=== PATIENT | male | born 1985 | race Caucasian/White ===

== ENCOUNTER 2020-08-06 16:43 | Emergency (ER) | payer OTHER ==
[2020-08-06 16:54] VITALS: BP 131/73; PULSE 85; RESP 16; TEMP 98.2
[2020-08-06] MEDS ORDERED: KETOROLAC 15 MG/ML 1 ML VIAL IM STA (17:08)
[2020-08-06] MEDS ORDERED: CYCLOBENZAPRINE 10MG STARTER 3 TAB BTL PO STA (17:08)
--- NOTE | 2020-08-06 18:08 | XR ---
PROCEDURE: XR shoulder complete LT - 3V DATE AND TIME: 08/06/2020 5:30 PM CLINICAL INDICATION: PHH; pain with movement TECHNIQUE: Department protocol COMPARISON: None FINDINGS: There is no fracture or malalignment. The soft tissues are unremarkable. IMPRESSION: NO ACUTE PROCESS.
--- NOTE | 2020-08-06 18:10 | XR ---
PROCEDURE: XR thoracic spine complete - 3V DATE AND TIME: 08/06/2020 5:30 PM CLINICAL INDICATION: PHH; paraspinal tenderness. TECHNIQUE: Department nonstanding protocol COMPARISON: None FINDINGS: Mid-thoracic spine dextrocurvature is noted, which may or may not be positional. There is no fracture or malalignment. The extraskeletal structures are unremarkable. IMPRESSION: No acute radiographic process.
--- NOTE | 2020-08-06 18:31 | ED ---
Extremity Problem HPI - General Source: patient Mode of arrival: ambulatory Limitations: no limitations <Sherie Díaz - Last Filed: 08/06/20 22:22> <Jacquie Santo - Last Filed: 08/08/20 09:48> - General Chief complaint: Extremity Problem,Nontraumatic Stated complaint: Shoulder pain Time Seen by Provider: 08/06/20 17:01 - History of Present Illness Initial comments: 34yo male presenting today for chief complaint of left posterior shoulder pain. Patient states that he frequently lifts at work. he states that his left posterior shoulder/upper back has been buggin him for days. he hasa localized area that hurts to touch. he states it increased with movement up and down of arm or the reaching position. pt denies chest pain,jaw pain,nausea, vomiting, dyspnea, falls, trauma, numbness,tingling or additional concerns. pt denies ripping tear sensation. admits to aching sensation. no hx of HTN. pt appears wel l nontoxic on arrival in no distress. (Sherie Díaz) - Related Data Previous Rx's Medication Instructions Recorded Cyclobenzaprine [Flexeril] 10 mg PO TID PRN 3 Days #9 tab 08/06/20 Allergies Allergy/AdvReac Type Severity Reaction Status Date / Time No Known Allergies Allergy Verified 08/06/20 16:50 Review of Systems ROS Other: All systems not noted in ROS Statement are negative. <Sherie Díaz - Last Filed: 08/06/20 22:22> ROS Other: All systems not noted in ROS Statement are negative. <Jacquie Santo - Last Filed: 08/08/20 09:48> ROS Statement: Those systems with pertinent positive or pertinent negative responses have been documented in the HPI. Past Medical History Past Medical History: Diabetes Mellitus Additional Past Medical History / Comment(s): clavicular dislocation left History of Any Multi-Drug Resistant Organisms: None Reported Past Surgical History: No Surgical Hx Reported Past Psychological History: No Psychological Hx Reported Smoking Status: Current every day smoker Past Alcohol Use History: None Reported Past Drug Use History: Marijuana <Sherie Díaz - Last Filed: 08/06/20 22:22> General Exam Limitations: no limitations <Sherie Díaz - Last Filed: 04/29/21 22:22> - General Exam Comments Initial Comments: General: The patient is awake and alert, in no distress, and does not appear acutely ill. Eye: Pupils are equal, round and reactive to light, extra-ocular movements are intact. No nystagmus. There is normal conjunctiva bilaterally. No signs of icterus. Ears, nose, mouth and throat: There are moist mucous membranes and no oral lesions. Neck: The neck is supple, there is no tenderness or JVD. Cardiovascular: There is a regular rate and rhythm. No murmur, rub or gallop is appreciated. Respiratory: Lungs are clear to auscultation, respirations are non-labored, breath sounds are equal. No wheezes, stridor, rales, or rhonchi. Gastrointestinal: Soft, non-distended, non-tender abdomen without masses or organomegaly noted. There is no rebound or guarding present. No CVA tenderness. Bowel sounds are unremarkable. No pulsatile masses Musculoskeletal: Pain to palpation between outer edge of mid scapula and thoracic spine adjacent to that area. pt winces. pt winces with over head/lowering/reaching of left arm. Strength 5/5. Sensation intact proximal and distal to injury site. Radial pulses equal bilaterally 2+. Neurological: A&O x 3. CN II-XII intact, There are no obvious motor or sensory deficits. Coordination appears grossly intact. Speech is normal. Skin: Skin is warm and dry and no rashes or lesions are noted. Psychiatric: Cooperative, appropriate mood & affect, normal judgment. (Sherie Díaz) Course Vital Signs 08/06/20 16:51 Temperature 98.2 F Pulse Rate 85 Respiratory 16 Rate Blood Pressure 131/73 O2 Sat by Pulse 97 Oximetry Medical Decision Making <Sherie Díaz - Last Filed: 08/06/20 22:22> <Jacquie Santo - Last Filed: 08/08/20 09:48> - Medical Decision Making imaging negative from physical examination this appears muscular skeletal is at is very reproducible. Patient is neurovascularly intact at this time feel he still for discharge was sent back treatment rest heat. patient is agreeable provided work note and is to see pcp in 1-2 days. return for worsening symptoms. Dr Santo agreeeable to care plan. (Sherie Díaz) I was available for consultation in the emergency department. The history and physical exam were done by the midlevel provider. I was consulted for this patients care. I reviewed the case with the midlevel provider and based on their presentation of the patient, I agree with the assessment, medical decision making and plan of care as documented. Chart was dictated using [employer] dictation software. Attempts were made to correct any dictation errors however some typographical errors may persist. Patient was seen during a national state of emergency due to the Covid-19 pandemic. (Jacquie Santo) Disposition Is patient prescribed a controlled substance at d/c from ED?: No Time of Disposition: 18:30 <Sherie Díaz - Last Filed: 08/06/20 22:22> <Jacquie Santo - Last Filed: 08/08/20 09:48> Clinical Impression: Shoulder pain Disposition: HOME SELF-CARE Condition: Good Instructions (If sedation given, give patient instructions): Shoulder Pain (ED) Additional Instructions: Please use medication as discussed. Please follow-up with family doctor in the next 2 days. Please return to emergency room if the symptoms increase or worsen or for any other concerns. Prescriptions: Cyclobenzaprine [Flexeril] 10 mg PO TID PRN 3 Days #9 tab PRN Reason: Muscle Spasm Referrals: None,Stated [Primary Care Provider] - 1-2 days [facility] - 1-2 days
== END 2020-08-06 18:58 | disposition home or self-care (01) ==
LOC: EC 16:43
DX: M25.512 Pain in left shoulder (principal); E11.9 Type 2 diabetes mellitus without complications; F17.200 Nicotine dependence, unspecified, uncomplicated; F12.90 Cannabis use, unspecified, uncomplicated; X50.0XXA Overexertion from strenuous movement or load, initial encounter
CPT/HCPCS: 72072; 73030; 99283; 96372; J1885

== ENCOUNTER 2020-08-26 18:05 | Emergency (ER) | payer OTHER ==
[2020-08-26 18:09] VITALS: BP 140/88; PULSE 105; RESP 18; TEMP 97.4
[2020-08-26] MEDS ORDERED: ACET/COD 300 MG/30 MG STARTER PACK 6 TAB BTL PO STA (18:55)
[2020-08-26] MEDS ORDERED: KETOROLAC 15 MG/ML 1 ML VIAL IM STA (18:55)
--- NOTE | 2020-08-26 18:55 | ED ---
Extremity Problem HPI - General Chief complaint: Extremity Problem,Nontraumatic Stated complaint: pain all over Time Seen by Provider: 08/26/20 18:26 Source: patient Mode of arrival: ambulatory Limitations: no limitations - History of Present Illness Initial comments: Patient is a 34-year-old male presenting to the emergency Department with complaints of ongoing left shoulder and left posterior shoulder pain over the past few weeks. Patient states he was seen here 3 weeks ago for same complaint, had normal x-rays. He did have any falls or trauma to the shoulder. He states he feels like the tightness is just getting worse and worse and his left posterior shoulder and now is causing some increased pain in his left posterior neck. He denies any falls or trauma. No fevers or chills. No chest pain or shortness of breath. He states he was history of an anterior clavicle dislocation on the left side but no other shoulder surgeries or trauma. He states he is in the process of changing primary care physician so he has not been able to follow-up with anybody. He did have a prescription for Flexeril which did seem to help but only had 2 days worth. He states he's been trying to take Tylenol or Motrin for any discomfort but states it started to give him a stomachache. He has no further complaints at this time. - Related Data Previous Rx's Medication Instructions Recorded Cyclobenzaprine [Flexeril] 10 mg PO TID PRN 3 Days #9 tab 08/06/20 Cyclobenzaprine [Flexeril] 5 mg PO BID #15 tablet 08/26/20 predniSONE [Deltasone] 20 mg PO DAILY #5 tab 08/26/20 Allergies Allergy/AdvReac Type Severity Reaction Status Date / Time No Known Allergies Allergy Verified 08/26/20 18:09 Review of Systems ROS Statement: Those systems with pertinent positive or pertinent negative responses have been documented in the HPI. ROS Other: All systems not noted in ROS Statement are negative. Past Medical History Past Medical History: Diabetes Mellitus Additional Past Medical History / Comment(s): clavicular dislocation left History of Any Multi-Drug Resistant Organisms: None Reported Past Surgical History: No Surgical Hx Reported Past Psychological History: No Psychological Hx Reported Smoking Status: Current every day smoker Past Alcohol Use History: None Reported Past Drug Use History: Marijuana General Exam - General Exam Comments Initial Comments: GENERAL: Patient is well-developed and well-nourished. Patient is nontoxic and in no acute distress. HEAD: Atraumatic, normocephalic. EYES: Pupils equal round and reactive to light, extraocular movements intact, sclera anicteric, conjunctiva are normal. Eyelids were unremarkable. ENT: Nares patent, oropharynx clear without exudates. Moist mucous membranes. NECK: Normal range of motion, supple without lymphadenopathy or JVD. LUNGS: Unlabored respirations. Breath sounds clear to auscultation bilaterally and equal. No wheezes rales or rhonchi. HEART: Regular rate and rhythm without murmurs, rubs or gallops. ABDOMEN: Soft, nontender, normoactive bowel sounds. No guarding, no rebound. No masses appreciated. : Deferred MUSCULOSKELETAL: The patient has pain with palpation of the left posterior shoulder, left thoracic area, left cervical paraspinals. He does have full active range of motion of left shoulder. He is neurovascular intact. No swelling, no obvious deformity, no rashes. No clubbing or cyanosis. NEUROLOGICAL: Patient is alert and oriented x 3. Motor and sensory are also intact. Cranial nerves II through XII grossly intact. Symmetrical smile. Normal speech, normal gait. PSYCH: Normal mood, normal affect. SKIN: Warm, Dry, normal turgor, no rashes or lesions noted. Limitations: no limitations Course Vital Signs 08/26/20 18:06 Temperature 97.4 F L Pulse Rate 105 H Respiratory 18 Rate Blood Pressure 140/88 O2 Sat by Pulse 98 Oximetry Medical Decision Making - Medical Decision Making Patient is a 34-year-old male here for continued muscle tightness and spasms of the left posterior shoulder, left thoracic area. He was seen here 3 weeks ago for same complaint, had normal x-rays at that time. He has not been ill follow- up with a PCP as he is switching providers. No fevers, is Full active range of motion. Discussed with patient this is most likely muscle spasms. I will give him a trial of Flexeril which she states has helped in the past. I will also give him a trial of steroids, we discussed not taking any anti-inflammatories w ith this. He may try Tylenol, recommend heat to the area, massage. I will give him orthopedic follow-up. He is stable for discharge and he is in agreement with this plan of care. Disposition Clinical Impression: Muscle spasm of left shoulder Disposition: HOME SELF-CARE Condition: Stable Instructions (If sedation given, give patient instructions): Muscle Spasm (ED) Additional Instructions: Please return to the Emergency Department if symptoms worsen or any other concerns. Trial of muscle relaxers at nighttime, heat to the area, massage. May also take Tylenol. Trial of steroids as well. Please follow up with orthopedic doctor if symptoms persist. Prescriptions: predniSONE [Deltasone] 20 mg PO DAILY #5 tab Cyclobenzaprine [Flexeril] 5 mg PO BID #15 tablet Is patient prescribed a controlled substance at d/c from ED?: No Referrals: None,Stated [Primary Care Provider] - 1-2 days Carlos Alberto Manjarrez DO [Doctor of Osteopathic Medicine] - 1-2 days Time of Disposition: 18:55
== END 2020-08-26 19:16 | disposition home or self-care (01) ==
LOC: EC 18:05
DX: M62.838 Other muscle spasm (principal); M54.2 Cervicalgia; M54.6 Pain in thoracic spine; E11.9 Type 2 diabetes mellitus without complications; F17.200 Nicotine dependence, unspecified, uncomplicated; F12.90 Cannabis use, unspecified, uncomplicated
CPT/HCPCS: 99283; 96372; J1885

== ENCOUNTER 2022-04-11 16:27 | Emergency (ER) | payer OTHER ==
--- NOTE | 2022-04-11 17:15 | ED ---
General Adult HPI - General Source: patient, RN notes reviewed Mode of arrival: ambulatory Limitations: no limitations <Santana Vu - Last Filed: 04/11/22 17:14> <Jacquie Santo - Last Filed: 04/13/22 15:59> - General Stated complaint: Chest pain Time Seen by Provider: 04/11/22 19:49 - History of Present Illness Initial comments: This a 28-year-old male presents emergency Department chief complaint of chest pain. Patient states pain started earlier today. It was left-sided radiate to his back. Patient states that he has known congenital bicuspid aortic valve. Patient states that he misses last echocardiogram. He states he still has some left-sided chest pain. Patient has a history of type 2 diabetes diet controlled, occasional smoking history. No lung disease including asthma or COPD no history of hypertension hyperlipidemia. Patient denies any trauma no rashes no other associated complaints. (Santana Vu) 36-year-old female presents emergency room with reported chest pain. States that he was sitting in a work meeting when he had sudden onset of left-sided chest pain which radiated into his left arm. States it is sharp in nature. Symptoms lasted for approximately 10 minutes before they spontaneously resolved. He does not take any medications to improve his symptoms. He has a history of bicuspid aortic valve with murmur which was recently diagnosed. States that he is due for an echo. Has a prescription for one however has had issues getting it completed due to Covid and influenza infections. Patient reports 2 resolution of his pain at this time. No associated fevers, chills or cough. No shortness of breath. No ripping or tearing sensation to his back. No lower extremity swelling. No history of DVT or PE. No other alleviating, precipitating or or modifying factors (Jacquie Santo) - Related Data Previous Rx's Medication Instructions Recorded Cyclobenzaprine [Flexeril] 10 mg PO TID PRN 3 Days #9 tab 08/06/20 Cyclobenzaprine [Flexeril] 5 mg PO BID #15 tablet 08/26/20 predniSONE [Deltasone] 20 mg PO DAILY #5 tab 08/26/20 Allergies Allergy/AdvReac Type Severity Reaction Status Date / Time No Known Allergies Allergy Verified 04/11/22 17:57 Review of Systems ROS Other: All systems not noted in ROS Statement are negative. <Santana Vu - Last Filed: 04/11/22 17:14> ROS Other: All systems not noted in ROS Statement are negative. <Jacquie Santo Torie - Last Filed: 04/13/22 15:59> ROS Statement: Those systems with pertinent positive or pertinent negative responses have been documented in the HPI. Past Medical History Past Medical History: Diabetes Mellitus Additional Past Medical History / Comment(s): clavicular dislocation left History of Any Multi-Drug Resistant Organisms: None Reported Past Surgical History: No Surgical Hx Reported Past Psychological History: No Psychological Hx Reported Smoking Status: Current every day smoker Past Alcohol Use History: None Reported Past Drug Use History: Marijuana <Santana Vu - Last Filed: 04/11/22 17:14> General Exam General appearance: alert, in no apparent distress Head exam: Present: atraumatic, normocephalic, normal inspection Eye exam: Present: normal appearance, PERRL, EOMI. Absent: scleral icterus, conjunctival injection, periorbital swelling ENT exam: Present: normal exam, mucous membranes moist Neck exam: Present: normal inspection. Absent: tenderness, meningismus, lymphadenopathy Respiratory exam: Present: normal lung sounds bilaterally. Absent: respiratory distress, wheezes, rales, rhonchi, stridor Cardiovascular Exam: Present: regular rate, normal rhythm, normal heart sounds. Absent: systolic murmur, diastolic murmur, rubs, gallop, clicks GI/Abdominal exam: Present: soft, normal bowel sounds. Absent: distended, tenderness, guarding, rebound, rigid Extremities exam: Present: normal inspection, full ROM, normal capillary refill. Absent: tenderness, pedal edema, joint swelling, calf tenderness Back exam: Present: normal inspection Neurological exam: Present: alert, oriented X3, CN II-XII intact Psychiatric exam: Present: normal affect, normal mood Skin exam: Present: warm, dry, intact, normal color. Absent: rash <Jacquie Santo - Last Filed: 04/13/22 15:59> Course Vital Signs 04/11/22 04/11/22 17:55 19:36 Temperature 98.5 F Pulse Rate 74 62 Respiratory 20 16 Rate Blood Pressure 125/81 128/76 O2 Sat by Pulse 99 100 Oximetry EKG Findings - EKG Comments: EKG Findings:: EKG demonstrates sinus rhythm with a rate of 63. MS interval 147. QRS 94. QTC of 372. No acute ST segment elevations. Mild ST depression V3 through V6 as well as 2, 3 and aVF <Jacquie Santo - Last Filed: 04/13/22 15:59> Medical Decision Making - Lab Data Result diagrams: 04/11/22 18:10 04/11/22 18:10 <Jacquie Santo - Last Filed: 04/13/22 15:59> - Medical Decision Making Was pt. sent in by a medical professional or institution? @ -No Did you speak to anyone other than the patient for history? @ -No Did you review nursing and triage notes? @ -Yes and I agree Were old charts reviewed? @ None Differential Diagnosis? @ -MT, ACS, unstable angina, valvular disease, PE, pleurisy EKG interpreted by me (3pts min.)? @ -Yes X-rays interpreted by me (1pt min.)? @ -Yes CT interpreted by me (1pt min.)? @ -No U/S interpreted by me (1pt. min.)? @ -No What testing was considered but not performed? (CT, X-rays, U/S, labs)? Why? @ None What meds were considered but not given? Why? @ -None Did you discuss the management of the patient with other professionals? @ -None Did you reconcile home meds? @ -No Was smoking cessation discussed for >3mins.? @ -No Was critical care preformed (if so, how long)? @ -No Were there social determinants of health that impacted care today? How? (Homelessness, low income, unemployed, alcoholism, drug addiction, transportation, low edu. Level, literacy, decrease access to med. care, custodial, rehab)? @ None Was there de-escalation of care discussed even if they declined? (Discuss DNR or withdrawal of care, Hospice)? @ None What co-morbidities impacted this encounter? (DM, HTN, Smoking, COPD, CAD, Cancer, CVA, Hep., AIDS, mental health diagnosis, sleep apnea, morbid obesity)? @ -DM Was patient admitted / discharged? Upon arrival patient was placed into room 5. A thorough history and physical exam was performed. IV access established laboratory studies were conducted. Patient does go for chest x-ray. Troponin is negative. Patient has been waiting in the waiting room for greater than 3 hours. Did recommend repeat troponin at this time which is also negative. Patient is pain-free. 12-lead EKG demonstrates no acute ischemic changes. Patient will be discharged home at this time and needs to obtain the echo for which he has a prescription. He is to follow-up with his doctor for possible Holter monitoring. Return for any new or worsening symptoms. Patient agreeable to the treatment plan was discharged home in stable condition Undiagnosed new problem with uncertain prognosis? @ -yes Drug Therapy requiring intensive monitoring for toxicity (Heparin, Nitro, Insulin, Cardizem)? @ No Were any procedures done? @ No Diagnosis/symptom? @ -acute chest pain Acute, or Chronic, or Acute on Chronic? @ -acute Uncomplicated (without systemic symptoms) or Complicated (systemic symptoms)? @ -complicated Side effects of treatment? @ None Exacerbation, Progression, or Severe Exacerbation] @ No Poses a threat to life or bodily function? @ Yes (Jacquie Santo) - Lab Data Lab Results 04/11/22 04/11/22 04/11/22 Range/Units 18:10 18:10 18:10 WBC 6.7 (3.8-10.6) k/uL RBC 4.35 (4.30-5.90) m/uL Hgb 13.8 (13.0-17.5) gm/dL Hct 38.8 L (39.0-53.0) % MCV 89.2 (80.0-100.0) fL MCH 31.8 (25.0-35.0) pg MCHC 35.7 (31.0-37.0) g/dL RDW 12.4 (11.5-15.5) % Plt Count 259 (150-450) k/uL MPV 7.3 Neutrophils % 60 % Lymphocytes % 32 % Monocytes % 5 % Eosinophils % 1 % Basophils % 0 % Neutrophils # 4.0 (1.3-7.7) k/uL Lymphocytes # 2.1 (1.0-4.8) k/uL Monocytes # 0.3 (0-1.0) k/uL Eosinophils # 0.1 (0-0.7) k/uL Basophils # 0.0 (0-0.2) k/uL PT 9.6 (9.0-12.0) sec INR 0.9 (<1.2) APTT 23.3 (22.0-30.0) sec Sodium 138 (137-145) mmol/L Potassium 3.7 (3.5-5.1) mmol/L Chloride 105 (98-107) mmol/L Carbon Dioxide 27 (22-30) mmol/L Anion Gap 6 mmol/L BUN 10 (9-20) mg/dL Creatinine 0.64 L (0.66-1.25) mg/dL Est GFR (CKD-EPI)AfAm >90 (>60 ml/min/1.73 sqM) Est GFR (CKD-EPI)NonAf >90 (>60 ml/min/1.73 sqM) Glucose 155 H (74-99) mg/dL Calcium 8.8 (8.4-10.2) mg/dL Magnesium 2.0 (1.6-2.3) mg/dL Total Bilirubin 0.3 (0.2-1.3) mg/dL AST 36 (17-59) U/L ALT 81 H (4-49) U/L Alkaline Phosphatase 53 (38-126) U/L Troponin I (0.000-0.034) ng/mL NT-Pro-B Natriuret Pep pg/mL Total Protein 7.2 (6.3-8.2) g/dL Albumin 4.5 (3.5-5.0) g/dL 04/11/22 04/11/22 04/11/22 Range/Units 18:10 18:10 20:32 WBC (3.8-10.6) k/uL RBC (4.30-5.90) m/uL Hgb (13.0-17.5) gm/dL Hct (39.0-53.0) % MCV (80.0-100.0) fL MCH (25.0-35.0) pg MCHC (31.0-37.0) g/dL RDW (11.5-15.5) % Plt Count (150-450) k/uL MPV Neutrophils % % Lymphocytes % % Monocytes % % Eosinophils % % Basophils % % Neutrophils # (1.3-7.7) k/uL Lymphocytes # (1.0-4.8) k/uL Monocytes # (0-1.0) k/uL Eosinophils # (0-0.7) k/uL Basophils # (0-0.2) k/uL PT (9.0-12.0) sec INR (<1.2) APTT (22.0-30.0) sec Sodium (137-145) mmol/L Potassium (3.5-5.1) mmol/L Chloride (98-107) mmol/L Carbon Dioxide (22-30) mmol/L Anion Gap mmol/L BUN (9-20) mg/dL Creatinine (0.66-1.25) mg/dL Est GFR (CKD-EPI)AfAm (>60 ml/min/1.73 sqM) Est GFR (CKD-EPI)NonAf (>60 ml/min/1.73 sqM) Glucose (74-99) mg/dL Calcium (8.4-10.2) mg/dL Magnesium (1.6-2.3) mg/dL Total Bilirubin (0.2-1.3) mg/dL AST (17-59) U/L ALT (4-49) U/L Alkaline Phosphatase (38-126) U/L Troponin I <0.012 <0.012 (0.000-0.034) ng/mL NT-Pro-B Natriuret Pep 53 pg/mL Total Protein (6.3-8.2) g/dL Albumin (3.5-5.0) g/dL Disposition <Santana Vu - Last Filed: 04/11/22 17:14> Is patient prescribed a controlled substance at d/c from ED?: No Time of Disposition: 20:29 <Jacquie Santo - Last Filed: 04/13/22 15:59> Clinical Impression: Chest pain Disposition: HOME SELF-CARE Condition: Stable Instructions (If sedation given, give patient instructions): Chest Pain (ED) Additional Instructions: Please follow-up with your primary care doctor and get the echo of your heart. Return for any new or worsening symptoms Referrals: Geri Castaneda MD [Primary Care Provider] - 1-2 days
[2022-04-11 17:57] VITALS: TEMP 98.5
[2022-04-11 18:27] LABS: Basophils % (A) 0 %; Eosinophils # (A) 0.1 k/uL (0-0.7); Eosinophils % (A) 1 %; HCT 38.8 % (39.0-53.0); HGB 13.8 gm/dL (13.0-17.5); Lymphocytes # (A) 2.1 k/uL (1.0-4.8); Lymphocytes % (A) 32 %; MCH 31.8 pg (25.0-35.0); MCHC 35.7 g/dL (31.0-37.0); MCV 89.2 fL (80.0-100.0); Mean Platelet Volume 7.3; Monocytes # (A) 0.3 k/uL (0-1.0); Monocytes % (A) 5 %; Neutrophils % (A) 60 %; Platelet Count 259 k/uL (150-450); RBC 4.35 m/uL (4.30-5.90); RDW 12.4 % (11.5-15.5); WBC 6.7 k/uL (3.8-10.6)
[2022-04-11 18:37] LABS: ALT 81 U/L (4-49); AST 36 U/L (17-59); African American GFR (CKD) >90 (>60 ml/min/1.73 sqM); Albumin 4.5 g/dL (3.5-5.0); Alkaline Phosphatase 53 U/L (38-126); Anion Gap 6 mmol/L; Blood Urea Nitrogen 10 mg/dL (9-20); Calcium 8.8 mg/dL (8.4-10.2); Carbon Dioxide 27 mmol/L (22-30); Chloride 105 mmol/L (98-107); Glucose 155 mg/dL (74-99); Non-African American GFR(CKD) >90 (>60 ml/min/1.73 sqM); Potassium 3.7 mmol/L (3.5-5.1); Sodium 138 mmol/L (137-145); Total Bilirubin 0.3 mg/dL (0.2-1.3); Total Protein 7.2 g/dL (6.3-8.2)
[2022-04-11 18:42] LABS: INR 0.9 (<1.2); Partial Thromboplastin Time 23.3 sec (22.0-30.0); Prothrombin Time 9.6 sec (9.0-12.0)
[2022-04-11 19:37] VITALS: BP 128/76; PULSE 62; RESP 16
--- NOTE | 2022-04-11 19:57 | XR ---
EXAMINATION TYPE: XR chest 2V DATE OF EXAM: 04/11/2022 COMPARISON: NONE HISTORY: Chest pain TECHNIQUE: 2 view FINDINGS: Heart is normal. Lungs are clear. Diaphragm is normal. Bony thorax is intact. IMPRESSION: Normal chest.
== END 2022-04-11 20:38 | disposition home or self-care (01) ==
LOC: EC 16:27
DX: R07.9 Chest pain, unspecified (principal); E11.9 Type 2 diabetes mellitus without complications; F17.200 Nicotine dependence, unspecified, uncomplicated; F12.90 Cannabis use, unspecified, uncomplicated
CPT/HCPCS: 36415; 71046; 80053; 83735; 83880; 84484; 85025; 85610; 85730; 93005; 99285

== ENCOUNTER 2024-07-19 13:58 | Emergency (ER) | payer OTHER ==
[2024-07-19 14:02] VITALS: TEMP 98.1
--- NOTE | 2024-07-19 15:15 | ED ---
Neck Injury/Pain HPI - General Chief Complaint: Neck Pain/Injury Stated Complaint: L Side Neck Pain Time Seen by Provider: 07/19/24 14:34 Source: patient, RN notes reviewed Mode of arrival: ambulatory Limitations: no limitations - History of Present Illness Initial Comments: This is a 38-year-old male who presents to the emergency department for neck kale n. Patient states that he began with generalized neck pain for couple of months. He has been seeing his primary care provider and they advised that he may have problems with his disc or degenerative disc disease. He does have a referral to orthopedics next month. They had wanted him to do physical therapy, but states that he does not have time with all of his kids. Pain is worse when he tries to turn his head. His concern today is that he has noticed some left- sided lymph node swelling for the last couple of days and wants to make sure it is not anything concerning. Denies any illness or URI symptoms. MD Complaint: neck pain - Related Data Previous Rx's Medication Instructions Recorded Cyclobenzaprine [Flexeril] 10 mg PO TID PRN 3 Days #9 tab 08/06/20 Cyclobenzaprine [Flexeril] 5 mg PO BID #15 tablet 08/26/20 predniSONE [Deltasone] 20 mg PO DAILY #5 tab 08/26/20 Ketorolac [Toradol] 10 mg PO Q6HR PRN #15 tab 07/19/24 methocarbamoL [Robaxin-750] 1,500 mg PO TID PRN #30 tab 07/19/24 Allergies Allergy/AdvReac Type Severity Reaction Status Date / Time No Known Allergies Allergy Verified 07/19/24 14:02 Review of Systems ROS Statement: Those systems with pertinent positive or pertinent negative responses have been documented in the HPI. ROS Other: All systems not noted in ROS Statement are negative. Past Medical History Past Medical History: Diabetes Mellitus Additional Past Medical History / Comment(s): clavicular dislocation left History of Any Multi-Drug Resistant Organisms: None Reported Past Surgical History: No Surgical Hx Reported Past Psychological History: No Psychological Hx Reported Smoking Status: Current every day smoker Past Alcohol Use History: None Reported Past Drug Use History: Marijuana General Exam Limitations: no limitations General appearance: alert, in no apparent distress Head exam: Present: atraumatic, normocephalic, normal inspection ENT exam: Present: other (Mild posterior pharyngeal erythema) Neck exam: Present: other (Tenderness to palpation of the left side of the neck with palpable lymphadenopathy) Respiratory exam: Present: normal lung sounds bilaterally. Absent: respiratory distress, wheezes, rales, rhonchi, stridor Cardiovascular Exam: Present: regular rate, normal rhythm Neurological exam: Present: alert, oriented X3, CN II-XII intact Psychiatric exam: Present: normal affect, normal mood Skin exam: Present: warm, dry, intact Course Vital Signs 07/19/24 07/19/24 13:59 17:22 Temperature 98.1 F 98.1 F Pulse Rate 86 71 Respiratory 17 16 Rate Blood Pressure 123/83 129/87 O2 Sat by Pulse 98 100 Oximetry Medical Decision Making - Medical Decision Making This is a 38-year-old male who presents to the emergency department for neck pain. Was pt. sent in by a medical professional or institution? @ -No Did you speak to anyone other than the patient for history? @ -No Did you review nursing and triage notes? @ -Yes, and I agree, it is accurate with regards to the patient's symptoms. Were old charts reviewed? @ -No Differential Diagnosis? @ -Differential Neck Pain: Fracture, dislocation, contusion, strain, DDD, disc herniation, this is not meant to be an all-inclusive list. EKG interpreted by me (3pts min.)? @ -Not obtained X-rays interpreted by me (1pt min.)? @ -Not obtained CT interpreted by me (1pt min.)? @ -CT scan of the soft tissue neck obtained. My interpretation identifies no lymphadenopathy. U/S interpreted by me (1pt. min.)? @ -Not obtained What testing was considered but not performed? (CT, X-rays, U/S, labs)? Why? @ -None What meds were considered but not given? Why? @ -None Did you discuss the management of the patient with other professionals? @ -No Did you reconcile home meds? @ -No Was smoking cessation discussed for >3mins.? @ -No Was critical care preformed (if so, how long)? @ -No Were there social determinants of health that impacted care today? How? (Homelessness, low income, unemployed, alcoholism, drug addiction, transportation, low edu. Level, literacy, decrease access to med. care, halfway, rehab)? @ -No Was there de-escalation of care discussed even if they declined? (Discuss DNR or withdrawal of care, Hospice)? @ -No What co-morbidities impacted this encounter? (DM, HTN, Smoking, COPD, CAD, Cancer, CVA, Hep., AIDS, mental health diagnosis, sleep apnea, morbid obesity)? @ -DM Was patient admitted / discharged? @ -Discharged. Lab work unremarkable. He had no leukocytosis or elevation in inflammatory markers. COVID, influenza, and RSV testing negative. Rapid strep test negative. On exam he had some mild generalized fullness to the left side of his neck, however there was nothing definitive. We did obtain CT imaging to evaluate for any signs of deep infection or other issue. No acute process was identified. The ongoing neck pain may be related to a strain or degenerative disc disease as they had thought. He will follow-up with his primary care provider and orthopedics for reevaluation and does already have upcoming appointments. Advised to continue to pay attention to the concern for enlarged lymph nodes. No obvious enlargement was noted on imaging. Prescription for Toradol and Robaxin provided to see if that offers any relief. Patient discharged home in stable condition. Case discussed with ED attending Dr. Santo. Return precautions reviewed in depth, the patient is instructed to return to the emergency department with any new, worsening, or concerning symptoms. Patient verbalized understanding. Undiagnosed new problem with uncertain prognosis? @ -None Drug Therapy requiring intensive monitoring for toxicity (Heparin, Nitro, Insulin, Cardizem)? @ -None Were any procedures done? @ -None Diagnosis/symptom? @ -Neck pain Acute, or Chronic, or Acute on Chronic? @ -Acute Uncomplicated (without systemic symptoms) or Complicated (systemic symptoms)? @ -Uncomplicated Side effects of treatment? @ -None Exacerbation, Progression, or Severe Exacerbation] @ -Not applicable Poses a threat to life or bodily function? @ -No - Lab Data Result diagrams: 07/19/24 15:17 07/19/24 15:17 Lab Results 07/19/24 07/19/24 07/19/24 Range/Units 15:17 15:17 15:17 WBC 5.22 (4.50-10.00) 10*3/uL RBC 4.21 L (4.40-5.60) 10*6/uL Hgb 13.2 (13.0-17.0) g/dL Hct 37.3 L (39.6-50.0) % MCV 88.6 (80.0-97.0) fL MCH 31.4 (27.0-32.0) pg MCHC 35.4 (32.0-37.0) g/dL Plt Count 263 (140-440) 10*3/uL MPV 8.9 L (9.5-12.2) fL Immature Gran % (Auto) 0.2 % Neutrophils % 62.0 % Lymphocytes % 26.2 % Monocytes % 10.2 % Eosinophils % 0.6 % Basophils % 0.8 % Immature Gran # 0.01 (0.00-0.04) 10*3/uL Neutrophils # 3.24 (1.80-7.70) 10*3/uL Lymphocytes # 1.37 (0.90-5.00) 10*3/uL Monocytes # 0.53 (0.20-1.00) 10*3/uL Eosinophils # 0.03 L (0.04-0.35) 10*3/uL Basophils # 0.04 (0.00-0.10) 10*3/uL Sodium 141 (137-145) mmol/L Potassium 4.1 (3.5-5.1) mmol/L Chloride 102 (98-107) mmol/L Carbon Dioxide 29 (22-30) mmol/L Anion Gap 10 mmol/L BUN 15 (9-20) mg/dL Creatinine 0.75 (0.66-1.25) mg/dL Est GFR (CKD-EPI)AfAm >90 (>60 ml/min/1.73 sqM) Est GFR (CKD-EPI)NonAf >90 (>60 ml/min/1.73 sqM) Glucose 84 (74-99) mg/dL Plasma Lactic Acid Oli 1.3 (0.7-2.0) mmol/L Calcium 9.5 (8.4-10.2) mg/dL Total Bilirubin 0.7 (0.2-1.3) mg/dL AST 30 (17-59) U/L ALT 37 (4-49) U/L Alkaline Phosphatase 49 (38-126) U/L C-Reactive Protein <0.5 (<1.0) mg/dL Total Protein 7.6 (6.3-8.2) g/dL Albumin 4.8 (3.5-5.0) g/dL Influenza Type A (PCR) (Not Detectd) Influenza Type B (PCR) (Not Detectd) RSV (PCR) (Not Detectd) SARS-CoV-2 (PCR) (Not Detectd) Group A Strep (PCR) (Not Detectd) 07/19/24 07/19/24 Range/Units 15:17 15:17 WBC (4.50-10.00) 10*3/uL RBC (4.40-5.60) 10*6/uL Hgb (13.0-17.0) g/dL Hct (39.6-50.0) % MCV (80.0-97.0) fL MCH (27.0-32.0) pg MCHC (32.0-37.0) g/dL Plt Count (140-440) 10*3/uL MPV (9.5-12.2) fL Immature Gran % (Auto) % Neutrophils % % Lymphocytes % % Monocytes % % Eosinophils % % Basophils % % Immature Gran # (0.00-0.04) 10*3/uL Neutrophils # (1.80-7.70) 10*3/uL Lymphocytes # (0.90-5.00) 10*3/uL Monocytes # (0.20-1.00) 10*3/uL Eosinophils # (0.04-0.35) 10*3/uL Basophils # (0.00-0.10) 10*3/uL Sodium (137-145) mmol/L Potassium (3.5-5.1) mmol/L Chloride (98-107) mmol/L Carbon Dioxide (22-30) mmol/L Anion Gap mmol/L BUN (9-20) mg/dL Creatinine (0.66-1.25) mg/dL Est GFR (CKD-EPI)AfAm (>60 ml/min/1.73 sqM) Est GFR (CKD-EPI)NonAf (>60 ml/min/1.73 sqM) Glucose (74-99) mg/dL Plasma Lactic Acid Oli (0.7-2.0) mmol/L Calcium (8.4-10.2) mg/dL Total Bilirubin (0.2-1.3) mg/dL AST (17-59) U/L ALT (4-49) U/L Alkaline Phosphatase (38-126) U/L C-Reactive Protein (<1.0) mg/dL Total Protein (6.3-8.2) g/dL Albumin (3.5-5.0) g/dL Influenza Type A (PCR) Not Detected (Not Detectd) Influenza Type B (PCR) Not Detected (Not Detectd) RSV (PCR) Not Detected (Not Detectd) SARS-CoV-2 (PCR) Not Detected (Not Detectd) Group A Strep (PCR) NOT DETECTED (Not Detectd) - Radiology Data Radiology results: report reviewed, image reviewed Disposition Clinical Impression: Neck pain Disposition: HOME SELF-CARE Instructions (If sedation given, give patient instructions): Cervical Strain (ED), Acute Neck Pain (ED) Additional Instructions: Return to the emergency department with any new, worsening, or concerning symptoms. Take the Toradol with Tylenol as needed for pain relief. If you choose to take the Toradol, do not take any other anti-inflammatories such as ibuprofen, take one or the other. Take the Robaxin as 1 to 2 tablets up to 3-4 times daily. You can also try applying warm compresses. Follow up with your primary care provider in 1-2 days. Prescriptions: methocarbamoL [Robaxin-750] 1,500 mg PO TID PRN #30 tab PRN Reason: Pain Ketorolac [Toradol] 10 mg PO Q6HR PRN #15 tab PRN Reason: Pain Is patient prescribed a controlled substance at d/c from ED?: No Referrals: Geri Castaneda MD [Primary Care Provider] - 1-2 days Time of Disposition: 17:12
[2024-07-19] MEDS: ORPHENADRINE 30 MG/ML 2 ML VIAL IVP STA (15:29)
[2024-07-19] MEDS: KETOROLAC 15 MG/ML 1 ML VIAL IVP STA (15:29)
[2024-07-19 15:35] LABS: Basophils # (A) 0.04 10*3/uL (0.00-0.10); Basophils % (A) 0.8 %; Eosinophils # (A) 0.03 10*3/uL (0.04-0.35); Eosinophils % (A) 0.6 %; HCT 37.3 % (39.6-50.0); HGB 13.2 g/dL (13.0-17.0); Lymphocytes # (A) 1.37 10*3/uL (0.90-5.00); Lymphocytes % (A) 26.2 %; MCH 31.4 pg (27.0-32.0); MCHC 35.4 g/dL (32.0-37.0); MCV 88.6 fL (80.0-97.0); Mean Platelet Volume 8.9 fL (9.5-12.2); Monocytes # (A) 0.53 10*3/uL (0.20-1.00); Monocytes % (A) 10.2 %; Neutrophils # (A) 3.24 10*3/uL (1.80-7.70); Platelet Count 263 10*3/uL (140-440); RBC 4.21 10*6/uL (4.40-5.60); RDW 12.5 % (11.5-14.5); WBC 5.22 10*3/uL (4.50-10.00)
[2024-07-19 15:56] LABS: ALT 37 U/L (4-49); AST 30 U/L (17-59); African American GFR (CKD) >90 (>60 ml/min/1.73 sqM); Albumin 4.8 g/dL (3.5-5.0); Alkaline Phosphatase 49 U/L (38-126); Anion Gap 10 mmol/L; Blood Urea Nitrogen 15 mg/dL (9-20); C Reactive Protein <0.5 mg/dL (<1.0); Calcium 9.5 mg/dL (8.4-10.2); Carbon Dioxide 29 mmol/L (22-30); Chloride 102 mmol/L (98-107); Glucose 84 mg/dL (74-99); Non-African American GFR(CKD) >90 (>60 ml/min/1.73 sqM); Potassium 4.1 mmol/L (3.5-5.1); Sodium 141 mmol/L (137-145); Total Bilirubin 0.7 mg/dL (0.2-1.3); Total Protein 7.6 g/dL (6.3-8.2)
[2024-07-19 16:10] LABS: Influenza A Not Detected (Not Detectd); Influenza B Not Detected (Not Detectd); RSV Not Detected (Not Detectd)
--- NOTE | 2024-07-19 17:00 | CT ---
EXAMINATION TYPE: CT soft tissue neck w con DATE OF EXAM: 07/19/2024 4:33 PM COMPARISON: None. CLINICAL INDICATION: Male, 38 years old with history of Left sided neck pain, lymphadenopathy, Left s ided neck pain. Swollen lymph nodes. r TECHNIQUE: Axial images at 3 mm thick sections. Reconstructed images in the coronal plane and sagitt al plane are reviewed. Contrast used:100 ml mL of Isovue 300 with IV Contrast, (none if empty) Oral contrast used: (none if empty) CT DLP: 360.9 mGycm, Automated exposure control for dose reduction was used. FINDINGS: Limited CT sections are obtained the lung apices. The lung apices appear clear. CT neck: The torus tubarius and fossa of Rosenmuller are normal. Rock Loader spaces are normal. Para nasal sinuses and mastoid air cells are clear. Parotid glands appear normal and symmetrical. Submandibular glands, are normal. Parapharyngeal spac es are normal. No suspicious adenopathy is evident. Small jugulodigastric lymph nodes are present. The hypopharynx appears within normal limits. Epiglottis is visualized normal. Pretracheal space is n ormal. Vocal cord level appear symmetrical. Thyroid as visualized is normal. Osseous structures are normal. Lung windows as visualized are clear IMPRESSION: 1. Small jugulodigastric lymph nodes no enlarged lymphadenopathy identified. Follow-up can be perform ed as clinically indicated. [facility], , 07/19/2024 4:57 PM
[2024-07-19] MEDS: ACET/COD 300 MG/30 MG STARTER PACK 6 TAB BTL PO STA (17:18)
[2024-07-19 17:24] VITALS: BP 129/87; PULSE 71; RESP 16
== END 2024-07-19 17:24 | disposition home or self-care (01) ==
LOC: EC 13:58
DX: M54.2 Cervicalgia (principal); E11.9 Type 2 diabetes mellitus without complications; F17.200 Nicotine dependence, unspecified, uncomplicated; Z11.52 Encounter for screening for COVID-19
CPT/HCPCS: 36415; 87651; 80053; 83605; 85025; 86140; 87636; 70491; 99284; 96374; 96375; J2360; J1885; Q9967